=== PATIENT | male | born 1975 | race Caucasian/White ===

== ENCOUNTER 2020-10-08 15:01 | Emergency (ER) | payer MEDICARE, MEDICAID ==
[~2020-10-08] VITALS: Ht 162.6 cm; Wt 75.0 kg
[~2020-10-08 15:01] MED LIST: DEPAK5; LORA-250; MIRA; SERT-112; TRAZ-252; ZYDS20
[2020-10-08] MEDS ORDERED: ACETAMINOPHEN 650MG/20.3ML UDC PO ONE (17:15)
[2020-10-08] MEDS ORDERED: AMOXL215 MT (17:22)
[2020-10-08 18:13] VITALS: BP 140/85
== END 2020-10-08 18:16 | disposition home or self-care (01) ==
LOC: ER 15:34
DX: S01.511A Laceration without foreign body of lip, initial encounter (principal); F79 Unspecified intellectual disabilities; E11.9 Type 2 diabetes mellitus without complications; G20 Parkinson's disease; E66.9 Obesity, unspecified; Z68.28 Body mass index [BMI] 28.0-28.9, adult; W18.2XXA Fall in (into) shower or empty bathtub, initial encounter; Y93.E1 Activity, personal bathing and showering; Y92.012 Bathroom of single-family (private) house as the place of occurrence of the external cause
CPT/HCPCS: 99283